=== PATIENT | female | born 1975 | race Two or more races ===

== ENCOUNTER 2023-11-10 18:37 | Emergency (ER) | payer OTHER, SELFPAY ==
[2023-11-10 18:37] VITALS: BMI 21.9
[2023-11-10 18:40] VITALS: BP 136/86
[2023-11-10 19:07] LABS: Urine Albumin Trace (Neg - Trace); Urine Bilirubin Negative (Negative); Urine Character Clear (Clear); Urine Color Straw; Urine Glucose Negative (Negative); Urine Ketone 1+ (Negative); Urine Leukocyte 2+ (Negative); Urine Nitrite Negative (Negative); Urine Occult Blood 4+ (Negative); Urine Urobilinogen Negative (Neg - 1+)
[2023-11-10 19:12] LABS: Urine White Cell >100 /HPF (0-5)
--- NOTE | 2023-11-10 21:33 | ED.GENMED ---
History of Present Illness
General
Chief Complaint: Flank Pain
Source: patient
Exam Limitations: none
Time Seen by Provider: 11/10/23 21:03
Travel History
Have you had any contact with someone who has COVID-19?: No
Do you have any symptoms of coronavirus? Fever > 100 degrees, chills, cough, shortness of breath, sore throat, loss of taste or smell, muscle aches, or headache?: No
History of Present Illness
History of Present Illness:
This is a 48 year old female that comes in with c/o possible kidney stone. States that she has pain on both sided of the back and that she can't pinpoint where the pain is. States that this has been going on for the past 3 days. States that she has
had chills, abd pain, nausea, diarrhea, and urinary burning. States that she took 3 Benadryl, 3 Flexeril and 2 Urispas. States that she has suprapubic pain. Denies any fever, chest pain, SOB, vomiting, headache, dizziness.
Past History
Past History
ED Past Medical History: Other (Migraines, renal calculus, UTI); Negative Asthma, HTN, Hypercholesterolemia or NIDDM
ED Past Surgical History: Appendectomy, Cholecystectomy, Orthopedic (Right shoulder surgery, ), Tonsilectomy, Urological (Stents) and Other (Hernia, Breast augmentation)
Patient has exhibited threatening behavior?: No
PSI?: No
Social History
Tobacco: Non-smoker
Alcohol: Occasional
Personal:
Living: with family
Review of Systems
Review of Systems
All Other Systems: ROS reviewed and negative except as documented in HPI and ROS
Constitutional: Reports chills; Denies fever
EENT: Reports no symptoms
Respiratory: Reports no symptoms; Denies cough or trouble breathing
Cardiac: Reports no symptoms; Denies chest pain
ABD/GI: Reports abdominal pain, nausea and diarrhea; Denies vomiting
: Denies dysuria, frequency or urgency
Musculoskeletal: Reports back pain (Bilateral back pain)
Skin: Reports no symptoms
Neurological: Reports no symptoms; Denies dizzy or headache
Psychiatric: Reports no symptoms
Phy Exam
General Physical Exam
General Presentation: well appearing and no apparent distress
General age: appears stated age
General Skin: warm and dry
General Habitus: normal
General Mental: alert
General Hydration: appears well hydrated
ENT Exam
ENT Exam: TM's normal, pharynx normal and neck supple
Eye Exam
Eye Exam: EOMI
Cardiovascular Exam
Cardiovascular Exam: regular rate/rhythm, no edema, no murmur and normal peripheral pulses
Pulmonary Exam
Pulmonary Exam: lungs clear, no respiratory distress, no rales, chest non tender, no crackles, no rhonchi, no wheezing and no cough
Gastrointestinal Exam
Gastrointestinal Exam: normal bowel sounds, soft, no organomegaly, no pulsatile mass, non distended, cva tenderness (L>R) and tender (Right lower and suprapubic tenderness)
Musculoskeletal Exam
Musculoskeletal Exam: full ROM and no edema
Skin Exam
Skin Exam: normal color, warm/dry, no rash and no petechia
Psychiatric Exam
Psychiatric Exam: normal mood/affect
Course
Orders/Labs/Results
Orders:
Orders
11/10/23 18:42
Test Result ONCE
11/10/23 18:56
Urinalysis Reflex To Culture Urgent
Date Specimen was Collected: 11/10/23
Time Specimen was Collected: 18:42
Urine Microscopic Reflex Cult Urgent
Urine Culture Urgent
TANIKA Source: U
Specimen Description:
Date Specimen was Collected: 11/10/23
Time Specimen was Collected: 18:42
11/10/23 21:32
CT Abd/pel Without Iv Or Oral Urgent
Comment:
Reason For Exam: Bilateral flank pain L>R
0.9% Sodium Chloride 1000 ml [Nss] 1,000 ml IV BOLUS
CefTRIAXone [Rocephin] 1,000 mg IV NOW STA
11/10/23 21:39
Ketorolac [Toradol] 30 mg IV NOW STA
11/10/23 21:40
Complete Blood Count/With Diff Urgent
Comprehensive Metabolic Panel Urgent
HCG, Serum Qualitative Screen Urgent
Lactate Level [Lactic Acid] Urgent
Blood Culture Urgent
TANIKA Source: Blood/Venous
Specimen Description:
Date Specimen was Collected: 11/10/23
Time Specimen was Collected: 18:42
11/10/23 21:45
Ondansetron Injectable [Zofran] 4 mg .ROUTE .STK-MED ONE
11/10/23 21:50
Ondansetron Injectable [Zofran] 4 mg IV NOW STA
11/11/23 00:03
Phenazopyridine HCl [Pyridium] 200 mg PO NOW STA
Abnormal Lab Results
11/10/23 11/10/23
18:56 21:40
MCH 33.7 H pg
(27.0-31.0)
MPV 11.7 H fL
(7.4-10.4)
Absolute Neuts (auto) 7.5 H 10^3/uL
(1.4-6.5)
Neutrophils % 75.5 H %
(42.2-75.2)
Lymphocytes % 16.5 L %
(20.5-51.1)
BUN 4 L mg/dl
(7-17)
Urine Ketones 1+ A
(Negative)
Ur Occult Blood Reflex 4+ A
(Negative)
Leukocyte Esterase Rfl 2+ A
(Negative)
Urine WBC (Reflex) >100 A /HPF
(0-5)
11/10/23 21:40
11/10/23 21:40
Urine positive for infection , Labs unremarkable, HCG negative.
Vital Signs
Initial and Last Documented VS:
Initial Vital Signs
Temp Pulse Resp BP Pulse Ox
98.4 F 93 18 136/86 95
11/10/23 18:40 11/10/23 18:40 11/10/23 18:40 11/10/23 18:40 11/10/23 18:40
Last Documented Vital Signs
Temp Pulse Resp BP Pulse Ox
98.4 F 74 17 130/81 97
11/10/23 18:40 11/10/23 22:39 11/10/23 22:39 11/10/23 22:39 11/10/23 22:39
MDM/Problems Addressed
Differential Diagnosis Includes:
UTI, Renal calculus,
MDM/Problems Addressed:
This is a 48 year old female that comes in with c/o bilateral back pain. States that she can't pinpoint the spot. States that she also has suprapubic pain.
Will get labs, CT scan, give IV fluids
Back into see patient. Explained that her CT is negative for any obstruction stones. She does have a Urinary tract infection. Patient was given IV antibiotics here and will give Prescription for Oral antibiotics for home. Patient to follow up with
Dr. Hobbs. Called and spoke with Dr. Cavazos and reviewed CT findings as requested. He is in agreement with the plan. Will discharge patient home.
Chronic conditions affecting care: Other (UTI and Renal calculus in the past)
Acute Exacerbation and/or Progression of Chronic Illness: Other (UTI Renal calculus)
*Radiology
Radiology exam reviewed: radiology read reviewed (CT-Mildl gastric wall thickening, could be corelated with signs or symptoms of gastritis. No evidence of obstructive uropathy. Bilateral nonobstructing nephrolithiasis. Incidentals: No bowel
obstruction. The gallbladder appears to be surgically abscent. The appendix is not well-seen. No hepatic or ) and all reviewed NAD by ED Provider (CT cont- No hepatic or pancreatic mass. NO abd aortic aneurysm. Right ovarian cyst measuring up to
2.6cm. No acute osseous abnormality. NO acute abnormality within the visualized lugs. No acute abnormality within the visualized soft tissues. )
*Pulse Oximetry
Patient hypoxic: no
*EKG
Interpreted by ED Provider?: NA
Rate: EKG- N/A
*Health Insurance Specialist Interpretation
Rate: Health Insurance Specialist- N/A
*Critical Care Note
Total Time (30-74mins, 75-104mins- exclusive of procedures): Not Applicable
ED Attending Note
-
Portions of this chart may have been created with voice recognition software.� Occasional wrong word or��sound alike� substitutions may have occurred due to the inherent limitations of voice recognition software.
Discharge Plan
Departure
Patient Disposition: Home (Routine Discharge)
Date of Disposition: 11/11/23
Time of Disposition: 00:06
Patient with high blood pressure during this ER visit?: Yes
Condition: Good
Covid-19: Not Applicable
Discharge Problem:
Urinary tract infection
Instructions: Urinary Tract Infection, Adult (DC), BLOOD PRESSURE
Prescriptions:
New
cefdinir 300 mg capsule
300 mg PO BID Qty: 14 0RF
phenazopyridine [Pyridium] 100 mg tablet
100 mg PO TID PRN (Reason: Spasm) Qty: 6 0RF
No Action
cetirizine 10 mg Tablet
10 mg PO HS PRN (Reason: Allergies)
tizanidine 2 mg Tablet
8 mg PO HS
Theragen Tablet
1 tab PO HS
norethindrone (contraceptive) 0.35 mg Tablet
0.35 mg PO HS
apple cider vinegar 500 mg Tablet
500 mg PO HS
biotin 1 mg Tablet
1 mg PO HS
Wegovy 2.4 mg/0.75 mL pen injector
2.4 mg SC DIANA
elderberry fruit 350 mg Capsule
350 mg PO HS
Probiotic
1 tab PO HS
potassium citrate 15 mEq tablet extended release
15 meq PO HS
Referrals:
Mihir Quiros MD [Family Provider] -
Erickson Hobbs MD [Active] - Call in 1-3 days for appt
Activity Restrictions/Additional Instructions:
As discussed, your blood work is normal. Your CT scan is negative for any obstructing stones. You do have a Urinary tract infection. You have been given IV antibiotics here and a prescription for home. You have also been given a prescription for
Pyridium which will turn your urine orange. This will help decrease the spasm and pain. You prescription have been sent to your Pharmacy. Please increase your water intake to 8-8oz glasses daily. Follow up with the Urologist for further evaluation.
IF YOU HAVE FEVER, INCREASED OR CHANGING PAIN, OR YOU HAVE ANY OTHER CONCERNS PLEASE RETURN TO THE EMERGENCY ROOM.
Interventions
Interventions:
*Risk Screen - Suicide Last Done: 11/10/23 18:40
*General Assessment Last Done: 11/10/23 18:40
*Neglect/Abuse Screening Last Done: 11/10/23 18:40
*ED COVID-19 Vaccine History Last Done: 11/10/23 18:40
XG-Fcywet-Nhxistlriz Assessment Last Done: 11/10/23 21:02
ED-Female Genitourinary Assessment Last Done: 11/10/23 21:02
[2023-11-10] MEDS: NSS 1000 IV (21:40)
[2023-11-10] MEDS: ROCEPHIN 1000 MG IV (21:40)
[2023-11-10] MEDS: TORADOL 30 MG IV (21:50)
[2023-11-10] MEDS: ZOFRAN 4 MG IV (21:51)
[2023-11-10 21:54] LABS: % Basophils 0.5 % (0-2); % Eosinophils 1.7 % (0-6); % Immature Granulocytes 0.4 % (0-0.5); % Lymphocytes 16.5 % (20.5-51.1); % Monocytes 5.4 % (1.7-9.3); % Neutrophils 75.5 % (42.2-75.2); Absolute Basophils 0.1 10^3/uL (0-0.2); Absolute Eosinophils 0.2 10^3/uL (0-0.7); Absolute Lymphocytes 1.7 10^3/uL (1.2-3.4); Absolute Monocytes 0.5 10^3/uL (0.1-0.6); Absolute Neutrophils 7.5 10^3/uL (1.4-6.5); Hematocrit 41.9 % (37.0-47.0); Hemoglobin 15.3 g/dL (12.0-16.0); Mean Corp Hgb Conc. 36.5 g/dL (33.0-37.0); Mean Corpuscular Hgb 33.7 pg (27.0-31.0); Mean Corpuscular Volume 92.3 fL (81.0-99.0); Mean Platelet Volume 11.7 fL (7.4-10.4); Nucleated Red Blood Cells % 0 %; Platelet Count 179 10^3/uL (130-400); Red Blood Cell Count 4.54 10^6/uL (4.20-5.40); Red Cell Dist. Width 12.7 % (11.5-14.5)
[2023-11-10 22:05] LABS: HCG, Serum Qualitative Screen Negative
[2023-11-10 22:09] LABS: ALT (SGPT) < 10 U/L (0-35); AST (SGOT) 17 U/L (14-36); Albumin 4.3 g/dl (3.5-5.0); Alkaline Phosphatase 105 U/L (38-126); Blood Urea Nitrogen 4 mg/dl (7-17); Calcium 9.7 mg/dl (8.4-10.2); Carbon Dioxide 22 mmol/L (22-30); Chloride 100 mmol/L (98-107); Estimated Creatinine Clearance 91 ml/min; Glucose 76 mg/dl (70-99); Lactic Acid 1.1 mmol/L (0.7-2.0); Sodium 135 mmol/L (135-145); Total Bilirubin 1.1 mg/dl (0.2-1.3); Total Protein 6.9 g/dl (6.3-8.2); eGFR > 60.00
[2023-11-10 22:39] VITALS: BP 130/81
[2023-11-11] MEDS: Pyridium 200 MG PO (00:15)
== END 2023-11-11 00:45 | disposition home or self-care (01) ==
LOC: EMR 18:37
PROVIDERS: EMERGENCY PHYSICIAN Emergency Medicine; FAMILY PHYSICIAN Internal Medicine
DX: N39.0 Urinary tract infection, site not specified (principal); R03.0 Elevated blood-pressure reading, without diagnosis of hypertension
CPT/HCPCS: 99284; 96374; 96375 ×2; 96361; 74176; 80053; 81003; 81015; 83605; 84703; 85025; 87040; 87086

== ENCOUNTER 2025-05-08 02:32 | Emergency (ER) | payer OTHER, SELFPAY ==
--- NOTE | 2025-05-08 02:45 | DOWNTIME ---
There was a [employer] Client Washcloth Folder Downtime on 05/08/2025 from 0100 to 05/08/2025 at 0235. Downtime documentation of patient's care, including medication administrations, has been reconciled in the electronic record per guidelines. Refer to the
patient's paper chart under the miscellaneous tab to see printed paper medication records and downtime forms.
[2025-05-08 03:05] LABS: ALT (SGPT) 39 U/L (0-35); AST (SGOT) 34 U/L (14-36); Albumin 4.1 g/dl (3.5-5.0); Alkaline Phosphatase 86 U/L (38-126); Blood Urea Nitrogen 17 mg/dl (7-17); Calcium 8.7 mg/dl (8.4-10.2); Carbon Dioxide 17 mmol/L (22-30); Chloride 111 mmol/L (98-107); Glucose 105 mg/dl (70-99); HCG, Serum Qualitative Screen Negative; Lipase 41 U/L (23-300); Potassium 4.0 mmol/L (3.5-5.1); Sodium 139 mmol/L (135-145); Total Protein 6.9 g/dl (6.3-8.2); eGFR > 60.00
--- NOTE | 2025-05-08 03:15 | ED.GENMED ---
History of Present Illness
General
Chief Complaint: Fever
Source: patient
Exam Limitations: none
Nursing documentation reviewed up to this point in time: agreed with
History of Present Illness
History of Present Illness:
Note:
CHIEF COMPLAINT(S)
Abdominal pain, fevers
HISTORY OF PRESENT ILLNESS
The patient is a 50-year-old female with no past medical history presents emergency department today with concerns of diarrhea, body aches, and intermittent abdominal pain starting last night. Began today and include severe pain throughout the
body, vomiting, diarrhea, and fever. She reports that she never took her temperature but felt warm. She reports generalized pain including in the abdomen, extremities, describing it as 'everything hurts.' She has an intermittent fever
characterized by profuse sweating. The patient mentions vomiting a large volume (1000 cc) and experiencing frequency of urination with mild dysuria. She has a history of recurrent kidney stones, having passed more than 30 stones due to a chronic
disorder of stone formation. She is concerned that she may have an infected stone. The patients current symptoms closely resemble her prior hospitalization in November 2019 for sepsis secondary to infected kidney stones. Of note, she was recently on
a cruise to [place] and she is in contact with her aunt who had a similar course of illness with diarrhea and improved after 48-hour period. Patient concerned she may have norovirus.
PAST MEDICAL AND SURIGICAL HISTORY
The patient reports a condition involving chronic kidney stone formation, resulting in the passage of over 30 stones. She also required surgery for stone removal due to urosepsis. She follows with Dr. Hobbs.
MEDICATIONS
- control pills
- Tizanidine
- Mounjaro (Tirzepatide)
PHYSICAL EXAM
General: Alert, in no acute distress but appears uncomfortable.
Skin: Warm, dry.
Head: Normocephalic, atraumatic.
Neck: Supple, trachea midline.
Eye Ears, nose, mouth and throat: Oral mucosa moist.
Cardiovascular: Normal peripheral perfusion, No edema.
Respiratory: Respirations are non-labored.
Gastrointestinal: Abdomen nondistended. Mild left lower quadrant abdominal tenderness to palpation noted. No CVA tenderness.
Musculoskeletal: Normal range of motion, normal strength.
Neurological: Alert and oriented to person, place, time, and situation, No focal neurological deficit observed.
Psychiatric: Cooperative, appropriate mood & affect.
PROBLEM LIST
- Vomiting
- Abdominal pain
- Diarrhea
- Fever
- Generalized body pain
PLAN
1. Initiate a Computed Tomography scan of the abdomen to evaluate for infected stones or obstruction.
2. Administer four milligrams of morphine for pain management.
4. Post-CT evaluate the need for further treatment or intervention.
5. Provide antiemetic medication (Ondansetron) to manage vomiting.
DIFFERENTIAL DIAGNOSIS
The Differential Diagnosis includes, in no particular order and is not limited to:
1. Infected kidney stones
2. Urinary tract infection
3. Pyelonephritis
4. Gastroenteritis
5. Biliary colic
6. Renal colic
7. Sepsis secondary to urinary source
8. Pancreatitis
9. Appendicitis
10. Diverticulitis
CHART REVIEW
Reviewed discharge summary from 08/29/2023 patient seen for right sided flank discomfort was found to have stone was discharged with trial of outpatient stone passage
MDM/disposition
The patient is a 50-year-old female with no past medical history presents emergency department today with concerns of diarrhea, body aches, and intermittent abdominal pain starting last night. Of note, patient was recently on a cruise to [place] and
her family member had similar symptoms that resolved after 48 hours. Patient is concerned that she might have norovirus. She is also concerned because she started to have increased urinary frequency and she has been hospitalized in the past for
urosepsis secondary to obstructing stone. Physical exam patient is well-appearing no distress. Her abdomen is soft with minimal tenderness to palpation. She has no CVA tenderness. Patient had lab work done labs reviewed no leukocytosis noted,
CMP unremarkable. Urinalysis negative for infection. CT scan is negative for obstructing stone but does show concerns for acute gastroenteritis and colitis. Patient received IV fluids. Received Zofran. Toradol. Discussed conservative
management and follow-up with primary. Patient expressed understanding. Patient stable for discharge.
Past History
Past History
ED Past Medical History: Other (Migraines, renal calculus, UTI); Negative Asthma, HTN, Hypercholesterolemia or NIDDM
ED Past Surgical History: Appendectomy, Cholecystectomy, Orthopedic (Right shoulder surgery, ), Tonsilectomy, Urological (Stents) and Other (Hernia, Breast augmentation)
Patient has exhibited threatening behavior?: No
PSI?: No
Social History
Tobacco: Non-smoker
Alcohol: Occasional
Personal:
Living: with family
Review of Systems
Review of Systems
All Other Systems: ROS reviewed and negative except as documented in HPI and ROS
Phy Exam
Physical Exam
Physical Exam:
see hpi
Course
Orders/Labs/Results
Orders:
Orders
05/08/25 01:30
Complete Blood Count/With Diff Urgent
Comment: .
Comprehensive Metabolic Panel Urgent
HCG, Serum Qualitative Screen Urgent
Lactic Acid Urgent
Lipase Urgent
05/08/25 03:45
CT Abd/pelvis W Iv Cont Urgent
Comment:
Reason For Exam: diffuse ab pain, b/l blank pain
05/08/25 04:11
Urinalysis Reflex To Culture Urgent
Date Specimen was Collected: 05/08/25
Time Specimen was Collected: 04:06
Urine Microscopic Reflex Cult Urgent
05/08/25 04:46
Ketorolac [Toradol] 15 mg IV NOW STA
Abnormal Lab Results
05/08/25 05/08/25
01:30 04:11
MCH 32.1 H pg
(27.0-31.0)
MPV 10.9 H fL
(7.4-10.4)
Absolute Lymphs (auto) 0.2 L 10^3/uL
(1.2-3.4)
Neutrophils % 91.7 H %
(42.2-75.2)
Lymphocytes % 3.1 L %
(20.5-51.1)
Chloride 111 H mmol/L
(98-107)
Carbon Dioxide 17 L mmol/L
(22-30)
Glucose 105 H mg/dl
(70-99)
ALT 39 H U/L
(0-35)
Urine Ketones 3+ A
(Negative)
Urine Albumin (Reflex) 1+ A
(Neg - Trace)
05/08/25 01:30
05/08/25 01:30
Vital Signs
Initial and Last Documented VS:
Initial Vital Signs
Temp
98.1 F
05/08/25 04:15
Last Documented Vital Signs
Temp BP Pulse Ox
98.1 F 105/73 97
05/08/25 04:15 05/08/25 04:23 05/08/25 04:45
*Pulse Oximetry
Patient hypoxic: no
*Critical Care Note
Total Time (30-74mins, 75-104mins- exclusive of procedures): Not Applicable
ED Attending Note
-
Portions of this chart may have been created with voice recognition software.� Occasional wrong word or��sound alike� substitutions may have occurred due to the inherent limitations of voice recognition software.
Discharge Plan
Departure
Patient Disposition: Home (Routine Discharge)
Date of Disposition: 05/08/25
Time of Disposition: 05:17
Patient with high blood pressure during this ER visit?: No
Condition: Good
Discharge Problem:
Acute gastroenteritis
Instructions: Viral gastroenteritis in adults
Prescriptions:
New
ondansetron 4 mg tablet,disintegrating
4 mg PO Q6H PRN (Reason: nausea and vomiting) Qty: 10 0RF
No Action
cetirizine 10 mg Tablet
10 mg PO HS PRN (Reason: Allergies)
tizanidine 2 mg Tablet
8 mg PO HS
Theragen Tablet
1 tab PO HS
norethindrone (contraceptive) 0.35 mg Tablet
0.35 mg PO HS
apple cider vinegar 500 mg Tablet
500 mg PO HS
biotin 1 mg Tablet
1 mg PO HS
Wegovy 2.4 mg/0.75 mL pen injector
2.4 mg SC DIANA
elderberry fruit 350 mg Capsule
350 mg PO HS
Probiotic
1 tab PO HS
potassium citrate 15 mEq tablet extended release
15 meq PO HS
cefdinir 300 mg capsule
300 mg PO BID Qty: 14 0RF
phenazopyridine [Pyridium] 100 mg tablet
100 mg PO TID PRN (Reason: Spasm) Qty: 6 0RF
Referrals:
Mihir Quiros MD [Family Provider, Internal Medicine]
Stand Alone Forms: Return to Work
Activity Restrictions/Additional Instructions:
Please stay well-hydrated. Please follow-up with your primary care provider. As discussed, your blood work is unremarkable. Your urinalysis does not show signs of infection.
PLEASE RETURN TO THE ER SHOULD YOU DEVELOP INTRACTABLE NAUSEA OR VOMITING, INABILITY TOLERATE ORAL INTAKE, ACUTE WORSENING OR PAIN, LIGHTHEADEDNESS, DIZZINESS, FAINTING SPELLS, CHEST PAIN, SHORTNESS OF BREATH, OR ANY OTHER SIGNS OR SYMPTOMS
WORRISOME TO YOU
Interventions
Interventions:
*Risk Screen - Suicide Last Done: 05/08/25 04:17
*Neglect/Abuse Screening Last Done: 05/08/25 04:17
*ED- Fall Risk Assessment Last Done: 05/08/25 04:17
*ED COVID-19 Vaccine History Last Done: 05/08/25 04:17
*Nursing Disposition Last Done: 05/08/25 05:56
ED- Neurological Assessment Last Done: 05/08/25 04:16
ED-Skin Assessment Last Done: 05/08/25 04:16
Discharge Date and Time
Discharge Date/Time: 05/08/25 05:57
Print Language: [place]
[2025-05-08 03:36] LABS: Hematocrit 43.5 % (37.0-47.0); Hemoglobin 15.0 g/dL (12.0-16.0); Mean Corpuscular Volume 93.1 fL (81.0-99.0)
[2025-05-08 03:37] LABS: Mean Corp Hgb Conc. 34.5 g/dL (33.0-37.0); Platelet Count 148 10^3/uL (130-400); Red Cell Dist. Width 12.2 % (11.5-14.5)
[2025-05-08 03:38] LABS: Nucleated Red Blood Cells % 0 %
[2025-05-08 04:19] LABS: Urine Character Clear (Clear)
[2025-05-08 04:23] VITALS: BP 105/73
[2025-05-08 04:30] LABS: Urine Red Blood Cell None Seen /HPF (0-2); Urine White Cell 0-2 /HPF (0-5)
[2025-05-08] MEDS: TORADOL 15 MG IV (05:00)
== END 2025-05-08 05:57 | disposition home or self-care (01) ==
LOC: EMR 02:32
PROVIDERS: Physician Assistant; EMERGENCY PHYSICIAN Student in an Organized Health Care Education/Training Program; FAMILY PHYSICIAN Internal Medicine
DX: K52.9 Noninfective gastroenteritis and colitis, unspecified (principal)
CPT/HCPCS: 99284; 96374; 74177; 80053; 81003; 81015; 83605; 83690; 84703; 85025; Q9967